=== PATIENT | female | born 1975 | race Caucasian/White ===

== ENCOUNTER 2017-08-05 17:31 | Observation (INO) | payer OTHER ==
--- NOTE | 2017-08-05 17:38 | PDOC ---
Rapid Medical Evaluation Time Seen by Provider: 08/05/17 17:33 Medical Evaluation: 08/05/17 17:33 I have performed a brief in-person evaluation of this patient. The patient presents with a chief complaint of: L great toe pain X a few days, h /o DM,sent by Dr Raines for admission. No f/c, pt has never used abx for infection. Pertinent physical exam findings:L great ingrown nail, + tenderness and swelling in lateral nail bed, no discharge noted, FROM, I have ordered the following: CBC/BMP, toe xray The patient will proceed to the ED for further evaluation. 08/05/17 17:36
[2017-08-05 19:42] LABS: HEMATOCRIT 39.2 % (32.4-45.2); HEMOGLOBIN 13.1 GM/dL (10.7-15.3); MCH 28.8 pg (25.7-33.7); MCHC 33.4 g/dl (32.0-36.0); MEAN CELL VOLUME 86.4 fl (80-96); MEAN PLT VOLUME 9.3 fl (7.5-11.1); PLATELET COUNT 269 K/MM3 (134-434); RBC 4.54 M/mm3 (3.60-5.2); WHITE BLOOD COUNT 10.8 K/mm3 (4.0-10.0)
[2017-08-05 20:16] LABS: ANION GAP 7 (8-16); BLOOD UREA NITROGEN 13 mg/dL (7-18); CALCIUM 8.5 mg/dL (8.5-10.1); CHLORIDE 107 mmol/L (98-107); CO2 26 mmol/L (21-32); CREATININE 0.8 mg/dL (0.55-1.02); GLUCOSE,RANDOM 100 mg/dL (74-106); SODIUM 140 mmol/L (136-145)
[2017-08-05 20:35] LABS: POTASSIUM 3.8 mmol/L (3.5-5.1)
--- NOTE | 2017-08-05 23:07 | PDOC ---
History of Present Illness - General Chief Complaint: Pain Stated Complaint: PAIN Time Seen by Provider: 08/05/17 17:33 History Source: Patient - History of Present Illness Initial Comments: 08/05/17 23:35 41 year old female sent by Dr. hicks for left great toe infection for ~ 3- 4 weeks with no improvement. patient was seen by chief counsel today who recommended come to the hospital to be admitted. no streaking noted, pain and swelling to the distal end of toe 08/06/17 00:02 PMD: Dr. Colton Noriega Past History - Past Medical History Allergies/Adverse Reactions: Allergies Allergy/AdvReac Type Severity Reaction Status Date / Time No Known Allergies Allergy Verified 08/05/17 17:33 COPD: No Diabetes: Yes - Surgical History Cholecystectomy: Yes - Suicide/Smoking/Psychosocial Hx Smoking History: Never smoked Have you smoked in the past 12 months: No Information on smoking cessation initiated: No Hx Alcohol Use: No Drug/Substance Use Hx: No Substance Use Type: None *Physical Exam - Vital Signs Last Vital Signs Temp Pulse Resp BP Pulse Ox 97.9 F 78 18 127/75 100 08/05/17 17:35 08/05/17 17:35 08/05/17 17:35 08/05/17 17:35 08/05/17 17:35 - Physical Exam General Appearance: Yes: Appropriately Dressed Cardiovascular: positive: Regular Rhythm, Regular Rate Extremity: positive: Swelling, Erythema, Inflammation, Other (left great toe erythema with swelling no streaking. no increased warmth noted ) Integumentary: positive: Normal Color, Dry, Warm Neurologic: positive: Fully Oriented, Alert, Normal Mood/Affect ED Treatment Course - LABORATORY CBC & Chemistry Diagram: 08/05/17 19:36 08/05/17 19:36 - ADDITIONAL ORDERS Additional order review: Laboratory Results 08/05/17 19:36 Sodium 140 Potassium 3.8 Chloride 107 Carbon Dioxide 26 Anion Gap 7 L BUN 13 Creatinine 0.8 Creat Clearance w eGFR > 60 Random Glucose 100 Calcium 8.5 08/05/17 19:36 RBC 4.54 MCV 86.4 MCHC 33.4 RDW 14.0 MPV 9.3 Medical Decision Making - Medical Decision Making 08/06/17 00:01 A: great toe infection p xray cbc cmp zosyn+ vanco patient signed out Dr. Cordoba's service *DC/Admit/Observation/Transfer Diagnosis at time of Disposition: Toe infection - Discharge Dispostion Decision to Admit order: Yes - Referrals - Patient Instructions - Post Discharge Activity
[2017-08-05] MEDS ORDERED: VANCOMYCIN 1,000 MG in DEXTROSE 5%-WATER - 250 ML IVPB ONE (23:20)
[2017-08-05] MEDS ORDERED: VANCOMYCIN 1 GRAM (PRE-DOCKED) 1,000 MG/250 ML BAG IVPB ONE (23:34)
[2017-08-06] MEDS: INSULIN SLIDING SCALE (NOVOLOG) 1 VIAL SQ SCH ×3 (07:59→16:38)
--- NOTE | 2017-08-06 12:31 | HP ---
Admitting History and Physical - Admission Chief Complaint: pain to left great toe History of Present Illness: 41 year old female sent by Dr. hicks for left great toe infection for ~ 3- 4 weeks with no improvement. patient was seen by correspondent today who recommended come to the hospital to be admitted. no streaking noted, pain and swelling to the distal end of toe 08/06/17 00:02 History Source: Patient, Medical Record Limitations to Obtaining History: No Limitations - Past Medical History Endocrine: Yes: Diabetes Mellitus - Smoking History Smoking history: Never smoked Have you smoked in the past 12 months: No - Alcohol/Substance Use Hx Alcohol Use: No - Social History Usual Living Arrangement: Yes: With Spouse ADL: Independent Home Medications - Allergies Allergies/Adverse Reactions: Allergies Allergy/AdvReac Type Severity Reaction Status Date / Time No Known Allergies Allergy Verified 08/05/17 17:33 - Home Medications Home Medications: Ambulatory Orders Glipizide [Glipizide ER] 15 mg PO DAILY 08/06/17 Metformin HCl [Glucophage] 500 mg PO DAILY 08/06/17 Review of Systems - Review of Systems Constitutional: denies: Chills, Fever, Loss of Appetite Eyes: reports: No Symptoms HENT: reports: No Symptoms Neck: reports: No Symptoms Cardiovascular: reports: No Symptoms Respiratory: reports: No Symptoms Gastrointestinal: reports: No Symptoms Genitourinary: reports: No Symptoms Breasts: reports: No Symptoms Reported Musculoskeletal: reports: Other (non healing right toe) Integumentary: reports: No Symptoms Neurological: reports: No Symptoms Endocrine: reports: No Symptoms Hematology/Lymphatic: reports: No Symptoms Psychiatric: reports: No Symptoms Physical Examination Vital Signs: Vital Signs Temperature 97.9 F 08/05/17 17:35 Pulse Rate 68 08/06/17 06:34 Respiratory Rate 17 08/06/17 06:34 Blood Pressure 118/67 08/06/17 06:34 O2 Sat by Pulse Oximetry (%) 97 08/06/17 06:34 Constitutional: Yes: Well Nourished, No Distress, Calm Eyes: Yes: Conjunctiva Clear, EOM Intact HENT: Yes: Atraumatic, Normocephalic Neck: Yes: Supple, Trachea Midline Cardiovascular: Yes: Regular Rate and Rhythm Respiratory: Yes: Regular, CTA Bilaterally Gastrointestinal: Yes: Normal Bowel Sounds, Soft ...Rectal Exam: Yes: Deferred Renal/: Yes: WNL Breast(s): Yes: WNL Musculoskeletal: Yes: WNL Extremities: Yes: WNL, Other (left great toe mild swelling / erythema mild tenderness to exam) Edema: No Peripheral Pulses WNL: Yes Integumentary: Yes: WNL Neurological: Yes: WNL, Alert, Oriented ...Motor Strength: WNL Psychiatric: Yes: Alert, Oriented Labs: CBC, BMP 08/05/17 19:36 08/05/17 19:36 Problem List - Problems (1) Diabetes mellitus Code(s): E11.9 - TYPE 2 DIABETES MELLITUS WITHOUT COMPLICATIONS (2) Toe infection Code(s): L08.9 - LOCAL INFECTION OF THE SKIN AND SUBCUTANEOUS TISSUE, UNSP Assessment/Plan # left great toe swelling / erythema r/o OM IV abx sed rate / crp / MRI Podiatry / ID consult # DM ada diet inc Metformin ck A1C
--- NOTE | 2017-08-06 12:49 | CONSULT ---
Consult - text type - Consultation Consultation Note: Patient seen in er bed. Vss. Wants to go home. Has had an infection of her left great toe for over 4 weeks and has been untreated. wbc=10.1, ziuf9y=9.1 +cellulitis left great toe. +drainage b/l nail border hallux r/o om cellulitis left big toe Admit for IVABX, MRI. ID consult. Will follow.
[2017-08-06 15:09] VITALS: BMI 33.5
--- NOTE | 2017-08-06 15:59 | PN ---
Progress Note (short form) - Note Progress Note: ID Consult dictated Cellulitis R great toe Diabetes mellitus Empiric cefazolin
[2017-08-06] MEDS: CEFAZOLIN 2 GM/D5W 2 GM/50 ML ML IVPB SCH (16:22)
[2017-08-06] MEDS: metFORMIN HCL 500 MG TABLET (FP) PO SCH (16:31)
[2017-08-07] MEDS ORDERED: PT OWN MED DRAWER 7, Y5N ONE (00:21)
[2017-08-07] MEDS: CEFAZOLIN 2 GM/D5W 2 GM/50 ML ML IVPB SCH ×2 (01:01→09:17)
[2017-08-07] MEDS: INSULIN SLIDING SCALE (NOVOLOG) 1 VIAL SQ SCH ×3 (06:33→17:27)
[2017-08-07] MEDS: metFORMIN HCL 500 MG TABLET (FP) PO SCH (09:17)
--- NOTE | 2017-08-07 09:27 | PN ---
Progress Note (short form) - Note Progress Note: Patient seen in bed had MRI. Eager to leave. vss, tmax=98.5 +improved cellulitis, awaiting mri reading, om? subungual exostosis/osteochondroma Awaiting MRI. If OM home IVABX and HBO. No OM. Will do subungual exostectomy/ biopsy out patient of distal phalanx. Will follow. Continue IVABx as per ID.
--- NOTE | 2017-08-07 10:59 | PN ---
Progress Note (short form) - Note Progress Note: patient seen an dexamined in room able to ambulate without difficulty s/p MRI - awaiting results Vital Signs Period Temp Pulse Resp BP Sys/Mendoza Pulse Ox Last 24 Hr 98.3 F-98.6 F 60-76 18-20 110-142/58-76 96-99 neck supple heart S1/S2 lngs clear bilat abd soft non tender ext no edema / significant decrease of erythema and swelling to left great toe + 2 pulses bilat / FROM / no pain elicited on exam CBC, BMP 08/05/17 19:36 08/05/17 19:36 x- ray negative for OM A1C 6.1 Active Medications Cefazolin Sodium/Dextrose (Ancef 2 Gm Premixed Ivpb -) 2 gm in 50 mls @ 100 mls /hr IVPB Q8H-IV NICK Last Admin: 08/07/17 09:17 Dose: 100 mls/hr Insulin Aspart (Novolog Vial Sliding Scale -) 1 vial SQ TIDAC NICK; Protocol Last Admin: 08/07/17 06:33 Dose: Not Given Metformin HCl (Glucophage -) 1,000 mg PO DAILY NICK Last Admin: 08/07/17 09:17 Dose: 1,000 mg Assessment/Plan # left great toe swelling / erythema r/o OM -- await MRI report IV abx Podiatry / ID consult # DM ada diet inc Metformin A1C -- 6.1 Problem List - Problems (1) Diabetes mellitus Code(s): E11.9 - TYPE 2 DIABETES MELLITUS WITHOUT COMPLICATIONS (2) Toe infection Code(s): L08.9 - LOCAL INFECTION OF THE SKIN AND SUBCUTANEOUS TISSUE, UNSP
--- NOTE | 2017-08-07 12:12 | PN ---
Progress Note, Physician History of Present Illness: Reports less great toe pain No drainage No fever/ chills MRI no osteomyelitis - Current Medication List Current Medications: Active Medications Cefazolin Sodium/Dextrose (Ancef 2 Gm Premixed Ivpb -) 2 gm in 50 mls @ 100 mls /hr IVPB Q8H-IV NICK Last Admin: 08/07/17 09:17 Dose: 100 mls/hr Insulin Aspart (Novolog Vial Sliding Scale -) 1 vial SQ TIDAC [facility]; Protocol Last Admin: 08/07/17 12:05 Dose: Not Given Metformin HCl (Glucophage -) 1,000 mg PO DAILY [facility] Last Admin: 08/07/17 09:17 Dose: 1,000 mg - Objective Vital Signs: Vital Signs Temperature 98.5 F 08/07/17 06:07 Pulse Rate 64 08/07/17 06:07 Respiratory Rate 20 08/07/17 06:39 Blood Pressure 110/62 08/07/17 06:07 O2 Sat by Pulse Oximetry (%) 96 08/06/17 15:01 Constitutional: Yes: No Distress Cardiovascular: Yes: Regular Rate and Rhythm, S1, S2 Respiratory: Yes: CTA Bilaterally Gastrointestinal: Yes: Normal Bowel Sounds, Soft. No: Tenderness Extremities: Yes: Other (decreased swelling/ erythema great toe) Labs: CBC, BMP 08/05/17 19:36 08/05/17 19:36 Assessment/Plan Cellulitis, great toe improved Diabetes mellitus Substitute po keflex 500mg po q6h x 7d Outpatient podiatry follow up
[2017-08-07 13:51] VITALS: BP 105/57; PULSE 65; TEMP 98.1
[2017-08-07] MEDS ORDERED: CEPHALEXIN MONOHYDRATE 500 MG CAPSULE (UD) PO SCH (18:00)
--- NOTE | 2017-08-08 20:23 | CONS ---
DATE OF CONSULTATION: DATE OF DICTATION: 08/08/2017 The patient is a 41-year-old diabetic female who was evaluated for cellulitis of the right great toe. Patient reports having an ingrown toenail in October of 2016. She had developed a localized infection at that time. Over the past 3-4 weeks, she had noted increasing erythema, warmth, and swelling of the distal aspect of the right great toe. She presented to the [facility] where she was referred to the emergency room for admission. An x-ray was done and was negative for fracture, dislocation, or osteomyelitis. She denies any associated fever or chills. Patient denies prior history of serious soft tissue infection requiring hospitalization or history of MRSA. PAST MEDICAL HISTORY: Positive for diabetes mellitus. ALLERGIES: No known allergies. SOCIAL HISTORY: Lives at home with significant other. Negative tobacco, alcohol, or illicit drug use. LABORATORY DATA: White count 10.8, hematocrit 39.2, platelet count of 269, BUN 13, creatinine 0.8. REVIEW OF SYSTEMS: Neurologic: No loss of consciousness, seizure activity, focal weakness. Cardiac: Negative for chest pain or palpitations. Respiratory: Negative cough or sputum production. Gastrointestinal: Negative for vomiting or diarrhea. Genitourinary: Negative for urinary tract infection. PHYSICAL EXAMINATION: General: She is not acutely toxic appearing. Vital Signs: Temperature 98.6, blood pressure 142/58, pulse 76 and regular, respirations 18 per minute. HEENT: Sclerae anicteric. Heart: Sounds S1, S2. Lungs: Clear. Abdomen: Soft and nontender. Extremities: Examination of the right foot: There is erythema present at the distal aspect of the right great toe with some fluctuance at the distal aspect of the toe. There is tenderness to palpation. There is no wound drainage. No lymphangitic streaking. No open ulceration. IMPRESSION: 1. Cellulitis of the right great toe. 2. Diabetes mellitus. PLAN: An MRI has been ordered. We will empirically cover skin pathogens with cephazolin 2 g IV piggy back every 8 hours. Local wound care. Podiatry evaluation. I will follow. Thank you for the kind referral. KAM BARRIGA M.D. [id number]
== END 2017-08-07 18:21 | disposition home or self-care (01) ==
LOC: JER 17:31 → JERBED 08-06 01:24 → J6S 08-06 14:35
PROVIDERS: ADMIT Family Medicine; ATTEND Family Medicine
DX: L03.032 Cellulitis of left toe (principal); E11.9 Type 2 diabetes mellitus without complications; Z79.4 Long term (current) use of insulin; Z79.84 Long term (current) use of oral hypoglycemic drugs
CPT/HCPCS: 36415; 73660-TC-FY; 73718-LT; 80048; 82962; 83036; 84703; 85027; 99285-25; G0378